=== PATIENT | male | born 1990 | race Asian ===

== ENCOUNTER 2019-05-12 15:17 | Inpatient (IN) | payer SELFPAY ==
[2019-05-12] MEDS ORDERED: ONDANSETRON 4 MG TAB.RAPDIS PO ONE (15:35)
--- NOTE | 2019-05-12 15:40 | ER Document Report ---
ED Medical Screen (RME) - General Chief Complaint: Abdominal Pain Stated Complaint: ABDOMINAL PAIN Time Seen by Provider: 05/12/19 15:37 Mode of Arrival: Wheelchair Information source: Patient - Interpreted [id number] Notes: 29-year-old male presented to ED for complaint of abdominal pain nausea and vomiting. He states that started about 4 hours ago. He has a history of pancreatitis. He states he used to drink alcohol a lot worse now he drinks alcohol seldom. He states he did have a bottle of alcohol last night. Patient states he does not smoke or use any drugs. He has no other medical history no surgical history. I have greeted and performed a rapid initial assessment of this patient. A comprehensive ED assessment and evaluation of the patient, analysis of test results and completion of medical decision making process will be conducted by an additional ED providers. - Related Data Allergies/Adverse Reactions: No Known Allergies Allergy (Unverified 05/12/19 15:34) Past Medical History - Social History Chew tobacco use (# tins/day): No Frequency of alcohol use: Occasional Drug Abuse: None Physical Exam - Vital signs Vitals: Pulse Resp BP Pulse Ox 77 18 140/78 H 96 05/12/19 15:22 05/12/19 15:22 05/12/19 15:22 05/12/19 15:22 Course - Vital Signs Vital signs: Temp Pulse Resp BP Pulse Ox 77 18 140/78 H 96 05/12/19 15:22 05/12/19 15:22 05/12/19 15:22 05/12/19 15:22
[2019-05-12 16:08] LABS: ABSOLUTE BASOPHILS # (AUTO) 0.1 10^3/uL (0.0-0.2); ABSOLUTE EOSINOPHILS # (AUTO) 0.1 10^3/uL (0.0-0.6); ABSOLUTE LYMPHOCYTES (AUTO) 1.8 10^3/uL (0.5-4.7); ABSOLUTE MONOCYTES (AUTO) 0.8 10^3/uL (0.1-1.4); ABSOLUTE NEUT (AUTO) 16.4 10^3/uL (1.7-8.2); APPEARANCE,URINE CLEAR; BASOPHILS % (AUTO) 0.4 % (0-2); BILIRUBIN,URINE NEGATIVE (NEGATIVE); COLOR,URINE YELLOW; EOSINOPHILS % (AUTO) 0.3 % (0-6); GLUCOSE, URINE NEGATIVE (NEGATIVE); HEMATOCRIT 47.8 % (37.9-51.0); KETONES,URINE 20 mg/dL (NEGATIVE); LYMPHOCYTES % (AUTO) 9.2 % (13-45); MEAN CORPUSCULAR VOLUME 82 fl (80-97); MONOCYTES % (AUTO) 4.4 % (3-13); PLATELET COUNT 332 10^3/uL (150-450); PROTEIN,URINE 30 mg/dL (NEGATIVE); RED BLOOD COUNT 5.81 10^6/uL (4.35-5.55); RED CELL DISTRIBUTION WIDTH 13.4 % (11.5-14.0); SEGMENTED NEUTROPHILS % (AUTO) 85.7 % (42-78); TOTAL CELLS COUNTED % (AUTO) 100 %; URINE SPECIFIC GRAVITY 1.028; UROBILINOGEN,URINE NEGATIVE mg/dL (<2.0); WHITE BLOOD COUNT 19.2 10^3/uL (4.0-10.5)
[2019-05-12 16:22] LABS: URINE AMPHETAMINES SCREEN NEGATIVE; URINE BARBITURATES SCREEN NEGATIVE; URINE BENZODIAZEPINES SCREEN NEGATIVE; URINE COCAINE SCREEN NEGATIVE; URINE MARIJUANA (THC) SCREEN NEGATIVE; URINE METHADONE SCREEN NEGATIVE; URINE PHENCYCLIDINE SCREEN NEGATIVE
[2019-05-12 16:34] LABS: MEAN CORPUSCULAR HGB CONC 33.5 g/dL (32.0-36.0)
--- NOTE | 2019-05-12 17:48 | ER Document Report ---
ED GI/ - General Chief Complaint: Abdominal Pain Stated Complaint: ABDOMINAL PAIN Time Seen by Provider: 05/12/19 15:37 Mode of Arrival: Wheelchair - HPI Notes: 05/12/19 29-year-old male to the emergency department with complaints of upper abdominal pain with nausea and vomiting that started this morning. He states that he has a history of pancreatitis and he drank one beer last night. States that since then he has had excruciating pain. He states that he used to be a heavy drinker but stopped after he got pancreatitis. He denies any fevers or chills. There has been some blood in his vomit. He denies any other drug use. He denies any diarrhea. - Related Data Allergies/Adverse Reactions: No Known Allergies Allergy (Unverified 05/12/19 15:34) Past Medical History - General Information source: Patient - Interpreted [id number] - Social History Smoking Status: Former Smoker Chew tobacco use (# tins/day): No Frequency of alcohol use: Occasional Drug Abuse: None Family History: Reviewed & Not Pertinent Patient has suicidal ideation: No Patient has homicidal ideation: No Review of Systems - Review of Systems Constitutional: denies: Chills, Fever EENT: No symptoms reported Cardiovascular: denies: Chest pain, Palpitations Respiratory: denies: Cough, Short of breath Gastrointestinal: Abdominal pain, Nausea, Vomiting. denies: Diarrhea Genitourinary: No symptoms reported Male Genitourinary: No symptoms reported Musculoskeletal: No symptoms reported Skin: No symptoms reported Hematologic/Lymphatic: No symptoms reported Neurological/Psychological: No symptoms reported -: Yes All other systems reviewed and negative Physical Exam - Vital signs Vitals: Pulse Resp BP Pulse Ox 77 18 140/78 H 96 05/12/19 15:22 05/12/19 15:22 05/12/19 15:22 05/12/19 15:22 Interpretation: Normal - General General appearance: Alert In distress: Moderate Notes: Patient writhing in bed holding upper abdomen. He occasionally will dry heave. He appears very uncomfortable. - HEENT Head: Normocephalic, Atraumatic Eyes: Normal Pupils: PERRL - Respiratory Respiratory status: No respiratory distress Chest status: Nontender Breath sounds: Normal Chest palpation: Normal - Cardiovascular Rhythm: Regular Heart sounds: Normal auscultation Murmur: No - Abdominal Inspection: Obese Distension: No distension Bowel sounds: Normal Tenderness: Tender - Positive tenderness to palpation over the epigastrium with mild guarding. No rebound. Negative McBurney's point. Negative Coleman sign. No CVA tenderness. Organomegaly: No organomegaly - Back Back: Normal, Nontender - Neurological Neuro grossly intact: Yes Cognition: Normal Orientation: AAOx4 Liseth Coma Scale Eye Opening: Spontaneous [place] Coma Scale Verbal: Oriented Liseth Coma Scale Motor: Obeys Commands Liseth Coma Scale Total: 15 Speech: Normal Cranial nerves: Normal. No: Facial palsy Cerebellar coordination: Normal Motor strength normal: LUE, RUE, LLE, RLE Additional motor exam normals: Equal buckle and button maker Sensory: Normal - Psychological Associated symptoms: Normal affect, Normal mood - Skin Skin Temperature: Warm Skin Moisture: Dry Skin Color: Normal Course - Re-evaluation Re-evalutation: 05/12/19 Noted lip[address] level. Pending CT. Patient will need admission. Noted CTU with no necrotizing pancreatitis or drainable abscess. Discussed with Dr. Russlel and he agrees with plan for admission for acute pancreatitis. Spoke with Dr. Marcelo, hospitalist. He agrees with plan for admission and he would like for the patient to go to the medical floor. He is aware of medicines given to the patient as well as CT reading plus lipase level platelet count. Updated patient and family about the plan for admission and they agree. Impression: Acute alcohol induced pancreatitis. Patient is resting much better now but still has mild pain. He has an uncomplicated acute pancreatitis. WIll admit to the hospitalist service. - Vital Signs Vital signs: Temp Pulse Resp BP Pulse Ox 97.8 F 77 15 121/68 96 05/12/19 23:35 05/12/19 15:22 05/12/19 23:01 05/12/19 23:01 05/12/19 23:01 - Laboratory Result Diagrams: 05/12/19 15:50 05/12/19 20:40 Laboratory results interpreted by me: 05/12/19 05/12/19 05/12/19 15:50 15:50 20:40 WBC 19.2 H RBC 5.81 H Lymph % (Auto) 9.2 L Absolute Neuts (auto) 16.4 H Seg Neutrophils % 85.7 H Sodium 136.2 L Glucose 126 H Lipase 7579.8 H Urine Protein 30 H Urine Ketones 20 H Urine Blood SMALL H - Diagnostic Test Radiology reviewed: Image reviewed, Reports reviewed Discharge - Discharge Clinical Impression: Acute pancreatitis Qualifiers: Pancreatitis type: alcohol induced Acute pancreatitis complication: no infection or necrosis Qualified Code(s): K85.20 - Alcohol induced acute pancreatitis without necrosis or infection Condition: Stable Disposition: ADMITTED INPATIENT Admitting Provider: Davian (Hospitalist) Unit Admitted: Medical Floor
[2019-05-12] MEDS ORDERED: MORPHINE SULFATE 10 MG/ML INJ IV ONE (17:53)
[2019-05-12] MEDS ORDERED: PROMETHAZINE HCL INJ 25 MG/1 ML VIAL IM ONE (17:56)
[2019-05-12] MEDS ORDERED: PROMETHAZINE HCL INJ 50 MG/1 ML VIAL IM PRN (17:59)
[2019-05-12] MEDS: NORMAL SALINE 1000 ML 1,000 ML IV PRN ×2 (18:04→19:19)
[2019-05-12] MEDS ORDERED: HYDROMORPHONE HCL INJ/PF 2 MG/ML AMPULE IV ONE ×2 (18:56→21:22)
[2019-05-12] MEDS ORDERED: PROMETHAZINE HCL INJ 25 MG/1 ML VIAL ONE (19:11)
[2019-05-12] MEDS ORDERED: PROMETHAZINE HCL INJ 25 MG/1 ML VIAL IV ONE (19:14)
[2019-05-12 21:23] LABS: ALBUMIN 4.3 g/dL (3.5-5.0); ALKALINE PHOSPHATASE 67 U/L (38-126); ANION GAP 10 (5-19); ASPARTATE AMINO TRANSFERASE 43 U/L (17-59); BILIRUBIN,DIRECT 0.2 mg/dL (0.0-0.4); BILIRUBIN,TOTAL 0.5 mg/dL (0.2-1.3); BLOOD UREA NITROGEN 14 mg/dL (7-20); CALCIUM 8.4 mg/dL (8.4-10.2); CARBON DIOXIDE 22 mmol/L (22-30); CHLORIDE 104 mmol/L (98-107); GLUCOSE 126 mg/dL (75-110); POTASSIUM 4.2 mmol/L (3.6-5.0); TOTAL PROTEIN 7.2 g/dL (6.3-8.2)
--- NOTE | 2019-05-12 23:02 | RADIOLOGY REPORT (SQ) ---
EXAM DESCRIPTION: CT ABDOMEN PELVIS WITH IV CONTRAST COMPLETED DATE/TME: 05/12/2019 18:25 CLINICAL HISTORY: 29 years, Male, epigastric abd pain. hx of pancreatitis COMPARISON: None. TECHNIQUE: Contrast enhanced CT of the abdomen/pelvis was performed. Coronal and sagittal reformations were created. Images were obtained after the uneventful administration of 100 mL of Omnipaque 350 intravenous contrast. Images stored on PACS. All CT scanners at this facility use dose modulation, iterative reconstruction, and/or weight based dosing when appropriate to reduce radiation dose to as low as reasonably achievable (ALARA). [facility]: Dose Right [facility]: CareDose [facility]: Dose Right [facility]: Teradose 4D [facility]: Snaptracs LIMITATIONS: None. FINDINGS: Limited evaluation of the lower chest reveals clear lung bases. The liver is diffusely low in attenuation relative to the spleen. No focal liver lesions are appreciated. The spleen, both adrenal glands, and gallbladder appear normal. The pancreas appears diffusely edematous, demonstrating peripancreatic inflammatory stranding. No drainable fluid collections are identified. The splenic vein enhances normally. A subcentimeter low-density lesion is noted about the upper pole of the left kidney, too small to accurately characterize. No hydronephrosis or hydroureter. Urinary bladder shows no suspicious finding. A small amount of excreted contrast material is noted within both ureters. Small and large bowel are normal in caliber. No evidence of bowel obstruction. Appendix is normal. Vascular structures opacify with contrast normally. No suspicious lymphadenopathy or drainable fluid collections are appreciated. Bone windows show no destructive osseous lesions. IMPRESSION: Findings consistent with acute, uncomplicated pancreatitis. Hepatic steatosis. TECHNICAL DOCUMENTATION: Quality ID # 436: Final reports with documentation of one or more dose reduction techniques (e.g., Automated exposure control, adjustment of the mA and/or kV according to patient size, use of iterative reconstruction technique) copyright 2010 [employer]- All Rights Reserved
[2019-05-12] MEDS ORDERED: NORMAL SALINE 1000 ML 1,000 ML IV PRN (23:24)
[2019-05-12] MEDS ORDERED: IPRATROPIUM/ALBUTEROL 0.5-2.5 MG/3 ML AMPUL NEB PRN (23:36)
[2019-05-12] MEDS ORDERED: PROMETHAZINE HCL 25 MG SUPP.RECT PR PRN (23:36)
[2019-05-13 05:21] LABS: ABSOLUTE LYMPHOCYTES (AUTO) 0.8 10^3/uL (0.5-4.7); ABSOLUTE MONOCYTES (AUTO) 1.1 10^3/uL (0.1-1.4); ABSOLUTE NEUT (AUTO) 14.4 10^3/uL (1.7-8.2); BASOPHILS % (AUTO) 0.2 % (0-2); HEMATOCRIT 44.7 % (37.9-51.0); HEMOGLOBIN 15.1 g/dL (13.5-17.0); LYMPHOCYTES % (AUTO) 5.1 % (13-45); MEAN CORPUSCULAR HEMOGLOBIN 27.4 pg (27.0-33.4); MEAN CORPUSCULAR HGB CONC 33.7 g/dL (32.0-36.0); MEAN CORPUSCULAR VOLUME 81 fl (80-97); MONOCYTES % (AUTO) 6.6 % (3-13); PLATELET COUNT 245 10^3/uL (150-450); RED BLOOD COUNT 5.49 10^6/uL (4.35-5.55); RED CELL DISTRIBUTION WIDTH 13.3 % (11.5-14.0); SEGMENTED NEUTROPHILS % (AUTO) 88.1 % (42-78); TOTAL CELLS COUNTED % (AUTO) 100 %; WHITE BLOOD COUNT 16.4 10^3/uL (4.0-10.5)
[2019-05-13 05:34] LABS: ALBUMIN 4.2 g/dL (3.5-5.0); ALKALINE PHOSPHATASE 50 U/L (38-126); ANION GAP 12 (5-19); ASPARTATE AMINO TRANSFERASE 42 U/L (17-59); BILIRUBIN,DIRECT 0.3 mg/dL (0.0-0.4); BILIRUBIN,TOTAL 0.8 mg/dL (0.2-1.3); BLOOD UREA NITROGEN 14 mg/dL (7-20); CALCIUM 8.6 mg/dL (8.4-10.2); CARBON DIOXIDE 24 mmol/L (22-30); CHLORIDE 103 mmol/L (98-107); CHOLESTEROL 196.01 mg/dL (0-200); GLUCOSE 133 mg/dL (75-110); POTASSIUM 3.9 mmol/L (3.6-5.0); TOTAL PROTEIN 7.1 g/dL (6.3-8.2); TRIGLYCERIDES 395 mg/dL (<150)
[2019-05-13 05:45] LABS: DIRECT LDL 64 mg/dL (<100)
--- NOTE | 2019-05-13 06:34 | PDOC H&P ---
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 intake. In the emergency room is found to sam ve leukocytosis unremarkable LFTs, lipase of [address] without necrosis. He started on symptomatic management and referred to the hospitalist for admission. Patient admits several previous episode secondary to over consumption and alcohol. He does admit to one alcoholic beverage 4 days ago Past Medical History Cardiac Medical History: Reports: None Social History Information Source: Patient Smoking Status: Unknown if Ever Smoked Electronic Cigarette use?: No Frequency of Alcohol Use: Occasional Hx Recreational Drug Use: No Drugs: None Hx Prescription Drug Abuse: No - Advance Directive Resuscitation Status: Full Code Family History Family History: COPD Parental Family History Reviewed: Yes Children Family History Reviewed: Yes Sibling(s) Family History Reviewed.: Yes Medication/Allergy Home Medications: No Home Medications 05/12/19 Allergies/Adverse Reactions: No Known Allergies Allergy (Unverified 05/12/19 15:34) Review of Systems Constitutional: ABSENT: chills, fever(s), headache(s), weight gain, weight loss Eyes: ABSENT: visual disturbances Ears: ABSENT: hearing changes Cardiovascular: ABSENT: chest pain, dyspnea on exertion, edema, orthropnea, palpitations Respiratory: ABSENT: cough, hemoptysis Gastrointestinal: ABSENT: abdominal pain, constipation, diarrhea, hematemesis, hematochezia, nausea, vomiting Genitourinary: ABSENT: dysuria, hematuria Musculoskeletal: ABSENT: joint swelling Integumentary: ABSENT: rash, wounds Neurological: ABSENT: abnormal gait, abnormal speech, confusion, dizziness, focal weakness, syncope Psychiatric: ABSENT: anxiety, depression, homidical ideation, suicidal ideation Endocrine: ABSENT: cold intolerance, heat intolerance, polydipsia, polyuria Hematologic/Lymphatic: ABSENT: easy bleeding, easy bruising Physical Exam Vital Signs: Temp Pulse Resp BP Pulse Ox 98.2 F 103 H 12 137/76 H 98 05/13/19 03:36 05/13/19 03:36 05/13/19 01:31 05/13/19 03:36 05/13/19 03:36 Intake & Output 11/01/2005/12/19 05/13/19 11:59 11:59 11:59 Intake Total 4000 Output Total 650 Balance 3350 Weight 80.2 kg General appearance: PRESENT: cooperative, mild distress, obese, well-developed, well-nourished Head exam: PRESENT: atraumatic, normocephalic Eye exam: PRESENT: conjunctiva pink, EOMI, PERRLA. ABSENT: scleral icterus Ear exam: PRESENT: normal external ear exam Mouth exam: PRESENT: moist, tongue midline Neck exam: ABSENT: carotid bruit, JVD, lymphadenopathy, thyromegaly Respiratory exam: PRESENT: clear to auscultation tashia. ABSENT: rales, rhonchi, wheezes Cardiovascular exam: PRESENT: RRR. ABSENT: diastolic murmur, rubs, systolic murmur Pulses: PRESENT: normal dorsalis pedis pul Vascular exam: PRESENT: normal capillary refill GI/Abdominal exam: PRESENT: distended, soft, tenderness. ABSENT: diminished bowel sounds, firm, guarding Rectal exam: PRESENT: deferred Extremities exam: PRESENT: full ROM. ABSENT: calf tenderness, clubbing, pedal edema Neurological exam: PRESENT: alert, awake, oriented to person, oriented to place, oriented to time, oriented to situation, CN II-XII grossly intact. ABSENT: motor sensory deficit Psychiatric exam: PRESENT: appropriate affect, normal mood. ABSENT: homicidal ideation, suicidal ideation Skin exam: PRESENT: dry, intact, warm. ABSENT: cyanosis, rash Results Laboratory Results: 05/13/19 04:37 05/13/19 04:37 05/12/19 05/12/19 05/12/19 15:50 15:50 15:50 WBC 19.2 H RBC 5.81 H Hgb 16.0 Hct 47.8 MCV 82 MCH 28.0 MCHC 33.5 RDW 13.4 Plt Count 332 Seg Neutrophils % 85.7 H Sodium Cancelled Potassium Cancelled Chloride Cancelled Carbon Dioxide Cancelled Anion Gap Cancelled BUN Cancelled Creatinine Cancelled Est GFR ( Amer) Cancelled Est GFR (Non-Af Amer) Cancelled Glucose Cancelled Calcium Cancelled Total Bilirubin Cancelled AST Cancelled Alkaline Phosphatase Cancelled Total Protein Cancelled Albumin Cancelled Triglycerides Cholesterol LDL Cholesterol Direct VLDL Cholesterol HDL Cholesterol Lipase Cancelled Urine Color YELLOW Urine Appearance CLEAR Urine pH 6.0 Ur Specific [place] 1.028 Urine Protein 30 H Urine Glucose (UA) NEGATIVE Urine Ketones 20 H Urine Blood SMALL H Urine RBC (Auto) 9 05/12/19 05/12/19 05/12/19 16:57 19:36 20:40 WBC RBC Hgb Hct MCV MCH MCHC RDW Plt Count Seg Neutrophils % Sodium Cancelled Cancelled 136.2 L Potassium Cancelled Cancelled 4.2 Chloride Cancelled Cancelled 104 Carbon Dioxide Cancelled Cancelled 22 Anion Gap Cancelled Cancelled 10 BUN Cancelled Cancelled 14 Creatinine Cancelled Cancelled 0.58 Est GFR ( Amer) Cancelled Cancelled > 60 Est GFR (Non-Af Amer) Cancelled Cancelled Glucose Cancelled Cancelled 126 H Calcium Cancelled Cancelled 8.4 Total Bilirubin Cancelled Cancelled 0.5 AST Cancelled Cancelled 43 Alkaline Phosphatase Cancelled Cancelled 67 Total Protein Cancelled Cancelled 7.2 Albumin Cancelled Cancelled 4.3 Triglycerides Cholesterol LDL Cholesterol Direct VLDL Cholesterol HDL Cholesterol Lipase Cancelled Cancelled 7579.8 H Urine Color Urine Appearance Urine pH Ur Specific [place] Urine Protein Urine Glucose (UA) Urine Ketones Urine Blood Urine RBC (Auto) 05/13/19 05/13/19 04:37 04:37 WBC 16.4 H RBC 5.49 Hgb 15.1 Hct 44.7 MCV 81 MCH 27.4 MCHC 33.7 RDW 13.3 Plt Count 245 Seg Neutrophils % 88.1 H Sodium 138.9 Potassium 3.9 Chloride 103 Carbon Dioxide 24 Anion Gap 12 BUN 14 Creatinine 0.69 Est GFR ( Amer) > 60 Est GFR (Non-Af Amer) Glucose 133 H Calcium 8.6 Total Bilirubin 0.8 AST 42 Alkaline Phosphatase 50 Total Protein 7.1 Albumin 4.2 Triglycerides 395 H Cholesterol 196.01 LDL Cholesterol Direct 64 VLDL Cholesterol 79.0 H HDL Cholesterol 43 Lipase Urine Color Urine Appearance Urine pH Ur Specific [place] Urine Protein Urine Glucose (UA) Urine Ketones Urine Blood Urine RBC (Auto) Impressions: Abdomen/Pelvis CT 05/12/19 18:25 IMPRESSION: Findings consistent with acute, uncomplicated pancreatitis. Hepatic steatosis. TECHNICAL DOCUMENTATION: Quality ID # 436: Final reports with documentation of one or more dose reduction techniques (e.g., Automated exposure control, adjustment of the mA and/or kV according to patient size, use of iterative reconstruction technique) copyright 2011 [employer]- All Rights Reserved Assessment and Plan - Diagnosis (1) Acute pancreatitis Qualifiers: Pancreatitis type: alcohol induced Acute pancreatitis complication: no infection or necrosis Qualified Code(s): K85.20 - Alcohol induced acute pancreatitis without necrosis or infection Is this a current diagnosis for this admission?: Yes Plan: Bowel rest, hydration, symptomatic management, follow-up chemistry. Trial p.o. clear liquid diet with no longer requesting narcotic analgesia. Advance diet as tolerated. (2) Abdominal pain Is this a current diagnosis for this admission?: Yes Plan: Secondary to #1 - Time Time Spent with patient: 15-24 minutes - Inpatient Certification Medical Necessity: Need Close Monitoring Due to Risk of Patient Decompensation
[2019-05-13] MEDS: KETOROLAC TROMETHAMINE INJ/PF 30 MG/1 ML SDV IV PRN ×3 (07:09→20:32)
[2019-05-13] MEDS: HEPARIN SOD (PORCINE) 5,000 UNIT/ML 1 ML VIAL SUBCUT SCH ×3 (07:10→22:53)
[2019-05-13] MEDS: NORMAL SALINE 1000 ML 1,000 ML IV PRN ×2 (07:13→20:34)
[2019-05-13] MEDS: ACETAMINOPHEN 325 MG TABLET PO PRN (17:15)
[2019-05-14] MEDS: HEPARIN SOD (PORCINE) 5,000 UNIT/ML 1 ML VIAL SUBCUT SCH ×3 (05:53→21:36)
[2019-05-14] MEDS: NORMAL SALINE 1000 ML 1,000 ML IV PRN ×2 (06:47→10:43)
[2019-05-14] MEDS: KETOROLAC TROMETHAMINE INJ/PF 30 MG/1 ML SDV IV PRN ×3 (06:55→20:44)
--- NOTE | 2019-05-14 14:44 | PDOC PROGRESS REPORT ---
Subjective Progress Note for:: 05/14/19 Subjective:: This is a 29-year-old male who was admitted for alcohol induced acute pancreatitis. Patient was n.p.o. yesterday and attempt to advance to liquid diet was done yesterday afternoon. However he developed recurrence of abdominal pain hence was made n.p.o. again. Upon encounter this morning, he says that his abdominal pain has slightly improved. We will try to advance again to a full liquid diet today. Reason For Visit: ACUTE PANCREATITIS Physical Exam Vital Signs: Temp Pulse Resp BP Pulse Ox 97.6 F 92 18 110/62 100 05/13/19 22:00 05/13/19 22:00 05/13/19 22:00 05/13/19 22:00 05/13/19 22:00 Intake & Output 05/13/19 05/14/19 05/15/19 06:59 06:59 06:59 Intake Total 4000 3000 Output Total 650 Balance 3350 3000 Weight 176 lb 12.972 oz 177 lb 4.026 oz General appearance: PRESENT: no acute distress, well-developed, well-nourished Head exam: PRESENT: atraumatic, normocephalic Eye exam: PRESENT: conjunctiva pink, EOMI, PERRLA. ABSENT: scleral icterus Ear exam: PRESENT: normal external ear exam Mouth exam: PRESENT: moist, tongue midline Neck exam: ABSENT: carotid bruit, JVD, lymphadenopathy, thyromegaly Respiratory exam: PRESENT: clear to auscultation tashia. ABSENT: rales, rhonchi, wheezes Cardiovascular exam: PRESENT: RRR. ABSENT: diastolic murmur, rubs, systolic murmur Pulses: PRESENT: normal dorsalis pedis pul GI/Abdominal exam: PRESENT: normal bowel sounds, soft, tenderness - minimal direct epig tenderness. ABSENT: distended, guarding, mass, organolmegaly, rebound Rectal exam: PRESENT: deferred Neurological exam: PRESENT: alert, awake, oriented to person, oriented to place, oriented to time, oriented to situation, CN II-XII grossly intact. ABSENT: motor sensory deficit Results Laboratory Results: 05/13/19 04:37 05/13/19 04:37 Impressions: Abdomen/Pelvis CT 05/12/19 18:25 IMPRESSION: Findings consistent with acute, uncomplicated pancreatitis. Hepatic steatosis. TECHNICAL DOCUMENTATION: Quality ID # 436: Final reports with documentation of one or more dose reduction techniques (e.g., Automated exposure control, adjustment of the mA and/or kV according to patient size, use of iterative reconstruction technique) copyright 2011 [employer]- All Rights Reserved Assessment and Plan - Diagnosis (1) Acute pancreatitis Qualifiers: Pancreatitis type: alcohol induced Acute pancreatitis complication: no infection or necrosis Qualified Code(s): K85.20 - Alcohol induced acute pancreatitis without necrosis or infection Is this a current diagnosis for this admission?: Yes Plan: Advance to liquid diet today. Reduce IV fluids to 100 cc/hr.
[2019-05-15] MEDS: HEPARIN SOD (PORCINE) 5,000 UNIT/ML 1 ML VIAL SUBCUT SCH ×3 (05:13→21:04)
[2019-05-15] MEDS: ACETAMINOPHEN 325 MG TABLET PO PRN ×3 (06:01→21:08)
[2019-05-15] MEDS: KETOROLAC TROMETHAMINE INJ/PF 30 MG/1 ML SDV IV PRN ×2 (08:29→21:03)
--- NOTE | 2019-05-15 13:58 | PDOC PROGRESS REPORT ---
Subjective Progress Note for:: 05/15/19 Subjective:: This is a 29-year-old male who was admitted for alcohol induced acute pancreatitis. 05/14: Patient was n.p.o. yesterday and attempt to advance to liquid diet was done yesterday afternoon. However he developed recurrence of abdominal pain hence was made n.p.o. again. Upon encounter this morning, he says that his abdominal pain has slightly improved. We will try to advance again to a full liquid diet today. 05/15: He complained of recurrence of abdominal pain when he tried to increase his oral intake today. Overall he says that his abdominal pain is slightly better compared to yesterday. We will keep him on full liquids today and continue to advance as tolerated. Reason For Visit: ACUTE PANCREATITIS Physical Exam Vital Signs: Temp Pulse Resp BP Pulse Ox 98.9 F 97 15 115/60 96 05/15/19 00:00 05/15/19 09:48 05/15/19 09:48 05/15/19 00:00 05/15/19 09:48 Intake & Output 05/14/19 05/15/19 05/16/19 06:59 06:59 06:59 Intake Total 3000 729 Balance 3000 729 Weight 177 lb 4.026 oz 178 lb 9.191 oz General appearance: PRESENT: no acute distress, well-developed, well-nourished Head exam: PRESENT: atraumatic, normocephalic Eye exam: PRESENT: conjunctiva pink, EOMI, PERRLA. ABSENT: scleral icterus Ear exam: PRESENT: normal external ear exam Mouth exam: PRESENT: moist, tongue midline Neck exam: ABSENT: carotid bruit, JVD, lymphadenopathy, thyromegaly Respiratory exam: PRESENT: clear to auscultation tashia. ABSENT: rales, rhonchi, wheezes Cardiovascular exam: PRESENT: RRR. ABSENT: diastolic murmur, rubs, systolic mur mur Pulses: PRESENT: normal dorsalis pedis pul GI/Abdominal exam: PRESENT: normal bowel sounds, soft, tenderness - improved direct tenderness. ABSENT: distended, guarding, mass, organolmegaly, rebound Rectal exam: PRESENT: deferred Extremities exam: PRESENT: full ROM. ABSENT: calf tenderness, clubbing, pedal edema Neurological exam: PRESENT: alert, awake, oriented to person, oriented to place, oriented to time, oriented to situation, CN II-XII grossly intact. ABSENT: motor sensory deficit Results Laboratory Results: 05/13/19 04:37 05/13/19 04:37 Impressions: Abdomen/Pelvis CT 05/12/19 18:25 IMPRESSION: Findings consistent with acute, uncomplicated pancreatitis. Hepatic steatosis. TECHNICAL DOCUMENTATION: Quality ID # 436: Final reports with documentation of one or more dose reduction techniques (e.g., Automated exposure control, adjustment of the mA and/or kV according to patient size, use of iterative reconstruction technique) copyright 2011 [employer]- All Rights Reserved Assessment and Plan - Diagnosis (1) Acute pancreatitis Qualifiers: Pancreatitis type: alcohol induced Acute pancreatitis complication: no infection or necrosis Qualified Code(s): K85.20 - Alcohol induced acute pancreatitis without necrosis or infection Is this a current diagnosis for this admission?: Yes Plan: 05/14: Advance to liquid diet today. Reduce IV fluids to 100 cc/hr. 05/15: He complained of recurrence of abdominal pain when he tried to increase his oral intake today. Overall he says that his abdominal pain is slightly better compared to yesterday. We will keep him on full liquids today and continue to advance as tolerated.
[2019-05-15] MEDS: NORMAL SALINE 1000 ML 1,000 ML IV PRN (16:58)
[2019-05-16] MEDS: HEPARIN SOD (PORCINE) 5,000 UNIT/ML 1 ML VIAL SUBCUT SCH ×2 (05:38→14:48)
[2019-05-16] MEDS: NORMAL SALINE 1000 ML 1,000 ML IV PRN (05:38)
[2019-05-16] MEDS: ACETAMINOPHEN 325 MG TABLET PO PRN (05:53)
[2019-05-16] MEDS: KETOROLAC TROMETHAMINE INJ/PF 30 MG/1 ML SDV IV PRN ×2 (05:53→15:23)
[2019-05-16] MEDS ORDERED: NORMAL SALINE 1000 ML 1,000 ML IV PRN (06:00)
[2019-05-16 07:01] LABS: HEMATOCRIT 35.9 % (37.9-51.0); HEMOGLOBIN 12.3 g/dL (13.5-17.0); MEAN CORPUSCULAR HEMOGLOBIN 27.6 pg (27.0-33.4); MEAN CORPUSCULAR HGB CONC 34.3 g/dL (32.0-36.0); MEAN CORPUSCULAR VOLUME 80 fl (80-97); PLATELET COUNT 246 10^3/uL (150-450); RED BLOOD COUNT 4.46 10^6/uL (4.35-5.55); RED CELL DISTRIBUTION WIDTH 13.1 % (11.5-14.0); WHITE BLOOD COUNT 12.7 10^3/uL (4.0-10.5)
[2019-05-16 07:19] LABS: ALBUMIN 3.4 g/dL (3.5-5.0); ALKALINE PHOSPHATASE 72 U/L (38-126); ANION GAP 12 (5-19); ASPARTATE AMINO TRANSFERASE 38 U/L (17-59); BILIRUBIN,DIRECT 0.6 mg/dL (0.0-0.4); BILIRUBIN,TOTAL 1.3 mg/dL (0.2-1.3); BLOOD UREA NITROGEN 11 mg/dL (7-20); CALCIUM 8.5 mg/dL (8.4-10.2); CARBON DIOXIDE 20 mmol/L (22-30); CHLORIDE 106 mmol/L (98-107); GLUCOSE 90 mg/dL (75-110); POTASSIUM 3.1 mmol/L (3.6-5.0); TOTAL PROTEIN 6.2 g/dL (6.3-8.2)
[2019-05-16] MEDS ORDERED: POTASSIUM CHLORIDE 10 MEQ CAPSULE.ER PO ONE (09:00)
[2019-05-16 13:12] VITALS: BP 115/60
[2019-05-16 14:52] LABS: POTASSIUM 3.6 mmol/L (3.6-5.0)
--- NOTE | 2019-05-17 15:40 | PDOC DISCHARGE SUMMARY ---
Impression - Admit/DC Date/PCP Admission Date/Primary Care Provider: 05/13/19 00:00 Discharge Date: 05/16/19 - Discharge Diagnosis (1) Acute pancreatitis Is this a current diagnosis for this admission?: Yes (2) Abdominal pain Is this a current diagnosis for this admission?: Yes (3) Obesity Is this a current diagnosis for this admission?: Yes - Additional Information Resuscitation Status: Full Code Discharge Diet: As Tolerated, Regular Discharge Activity: Activity As Tolerated Referrals: [facility] [Outside] - 05/23/19 10:30 am (Please bring all disccharge paperwork, medications, and ID to the appointment. 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 intake. In the emergency room is found to have leukocytosis unremarkable LFTs, lipase of [address] without necrosis. He started on symptomatic management and referred to the hospitalist for admission. Patient admits several previous episode secondary to over consumption and alcohol. He does admit to one alcoholic beverage 4 days ago Hospital Course Hospital Course: (1) Acute pancreatitis Resolved. Acute alcoholic hepatitis. Patient was admitted to medical floor with bowel rest, hydration, symptomatic management. Diet was advanced as tolerated. Asymptomatic on day of discharge. Having normal bowel bladder movement. Advised on EtOH options. Was also noted to have mildly elevated triglyceride. Was discharged on omega-3 fatty acid 2 g daily. Was asked to follow-up with PCP for evaluation of lipid panel. (2) Abdominal pain Secondary to #1 (3) Obesity BMI 28.6. Diet and lifestyle modification recommended. Physical Exam Vital Signs: Temp Pulse Resp BP Pulse Ox 97.7 F 83 20 115/60 98 05/16/19 13:08 05/16/19 13:08 05/16/19 13:08 05/16/19 13:08 05/16/19 13:08 Intake & Output 05/16/19 05/17/19 05/18/19 06:59 06:59 06:59 Intake Total 2307 668 Balance 2307 668 Weight 80.3 kg General appearance: PRESENT: no acute distress, obese, well-developed, well- nourished Head exam: PRESENT: atraumatic, normocephalic Eye exam: PRESENT: conjunctiva pink, EOMI, PERRLA. ABSENT: scleral icterus Ear exam: PRESENT: normal external ear exam Mouth exam: PRESENT: moist, tongue midline Neck exam: ABSENT: carotid bruit, JVD, lymphadenopathy, thyromegaly Respiratory exam: PRESENT: clear to auscultation tashia. ABSENT: rales, rhonchi, wheezes Cardiovascular exam: PRESENT: RRR. ABSENT: diastolic murmur, rubs, systolic murmur Pulses: PRESENT: normal dorsalis pedis pul Vascular exam: PRESENT: normal capillary refill GI/Abdominal exam: PRESENT: normal bowel sounds, soft. ABSENT: distended, guarding, mass, organolmegaly, rebound, tenderness Rectal exam: PRESENT: deferred Extremities exam: PRESENT: full ROM. ABSENT: calf tenderness, clubbing, pedal edema Neurological exam: PRESENT: alert, awake, oriented to person, oriented to place, oriented to time, oriented to situation, CN II-XII grossly intact. ABSENT: motor sensory deficit Psychiatric exam: PRESENT: appropriate affect, normal mood. ABSENT: homicidal ideation, suicidal ideation Skin exam: PRESENT: dry, intact, warm. ABSENT: cyanosis, rash Results Laboratory Results: WBC 12.7 10^3/uL (4.0-10.5) H 05/16/19 06:43 RBC 4.46 10^6/uL (4.35-5.55) 05/16/19 06:43 Hgb 12.3 g/dL (13.5-17.0) L 05/16/19 06:43 Hct 35.9 % (37.9-51.0) L 05/16/19 06:43 MCV 80 fl (80-97) 05/16/19 06:43 MCH 27.6 pg (27.0-33.4) 05/16/19 06:43 MCHC 34.3 g/dL (32.0-36.0) 05/16/19 06:43 RDW 13.1 % (11.5-14.0) 05/16/19 06:43 Plt Count 246 10^3/uL (150-450) 05/16/19 06:43 Lymph % (Auto) 5.1 % (13-45) L 05/13/19 04:37 Harris % (Auto) 6.6 % (3-13) 05/13/19 04:37 Eos % (Auto) 0.0 % (0-6) 05/13/19 04:37 Baso % (Auto) 0.2 % (0-2) 05/13/19 04:37 Absolute Neuts (auto) 14.4 10^3/uL (1.7-8.2) H 05/13/19 04:37 Absolute Lymphs (auto) 0.8 10^3/uL (0.5-4.7) 05/13/19 04:37 Absolute Monos (auto) 1.1 10^3/uL (0.1-1.4) 05/13/19 04:37 Absolute Eos (auto) 0.0 10^3/uL (0.0-0.6) 05/13/19 04:37 Absolute Basos (auto) 0.0 10^3/uL (0.0-0.2) 05/13/19 04:37 Seg Neutrophils % 88.1 % (42-78) H 05/13/19 04:37 Sodium 137.9 mmol/L (137-145) 05/16/19 06:43 Potassium 3.6 mmol/L (3.6-5.0) 05/16/19 14:25 Chloride 106 mmol/L (98-107) 05/16/19 06:43 Carbon Dioxide 20 mmol/L (22-30) L 05/16/19 06:43 Anion Gap 12 (5-19) 05/16/19 06:43 BUN 11 mg/dL (7-20) 05/16/19 06:43 Creatinine 0.66 mg/dL (0.52-1.25) 05/16/19 06:43 Est GFR ( Amer) > 60 (>60) 05/16/19 06:43 Est GFR (Non-Af Amer) Cancelled 05/12/19 19:36 Est GFR (MDRD) Non-Af > 60 (>60) 05/16/19 06:43 Glucose 90 mg/dL (75-110) 05/16/19 06:43 Calcium 8.5 mg/dL (8.4-10.2) 05/16/19 06:43 Magnesium 2.4 mg/dL (1.6-2.3) H 05/16/19 14:25 Total Bilirubin 1.3 mg/dL (0.2-1.3) 05/16/19 06:43 Direct Bilirubin 0.6 mg/dL (0.0-0.4) H 05/16/19 06:43 Neonat Total Bilirubin Not Reportable 05/16/19 06:43 Neonat Direct Bilirubin Not Reportable 05/16/19 06:43 Neonat Indirect Bili Not Reportable 05/16/19 06:43 AST 38 U/L (17-59) 05/16/19 06:43 ALT 48 U/L (<50) 05/16/19 06:43 Alkaline Phosphatase 72 U/L (38-126) 05/16/19 06:43 Total Protein 6.2 g/dL (6.3-8.2) L 05/16/19 06:43 Albumin 3.4 g/dL (3.5-5.0) L 05/16/19 06:43 Triglycerides 395 mg/dL (<150) H 05/13/19 04:37 Cholesterol 196.01 mg/dL (0-200) 05/13/19 04:37 LDL Cholesterol Direct 64 mg/dL (<100) 05/13/19 04:37 VLDL Cholesterol 79.0 mg/dL (10-31) H 05/13/19 04:37 HDL Cholesterol 43 mg/dL (>40) 05/13/19 04:37 Lipase 605.8 U/L (23-300) H 05/14/19 09:47 EGFR Cancelled 05/12/19 19:36 Urine Color YELLOW 05/12/19 15:50 Urine Appearance CLEAR 05/12/19 15:50 Urine pH 6.0 (5.0-9.0) 05/12/19 15:50 Ur Specific [place] 1.028 05/12/19 15:50 Urine Protein 30 mg/dL (NEGATIVE) H 05/12/19 15:50 Urine Glucose (UA) NEGATIVE mg/dL (NEGATIVE) 05/12/19 15:50 Urine Ketones 20 mg/dL (NEGATIVE) H 05/12/19 15:50 Urine Blood SMALL (NEGATIVE) H 05/12/19 15:50 Urine Nitrite (Reflex) NEGATIVE (NEGATIVE) 05/12/19 15:50 Urine Bilirubin NEGATIVE (NEGATIVE) 05/12/19 15:50 Urine Urobilinogen NEGATIVE mg/dL (<2.0) 05/12/19 15:50 Leukocyte Esterase Rfl NEGATIVE (NEGATIVE) 05/12/19 15:50 Urine RBC (Auto) 9 /HPF 05/12/19 15:50 Urine WBC (Reflex) < 1 /HPF 05/12/19 15:50 Urine Mucus (Auto) MANY /LPF 05/12/19 15:50 Urine Ascorbic Acid NEGATIVE (NEGATIVE) 05/12/19 15:50 Urine Opiates Screen NEGATIVE 05/12/19 15:50 Urine Methadone Screen NEGATIVE 05/12/19 15:50 Ur Barbiturates Screen NEGATIVE 05/12/19 15:50 Ur Phencyclidine Scrn NEGATIVE 05/12/19 15:50 Ur Amphetamines Screen NEGATIVE 05/12/19 15:50 U Benzodiazepines Scrn NEGATIVE 05/12/19 15:50 Urine Cocaine Screen NEGATIVE 05/12/19 15:50 U Marijuana (THC) Screen NEGATIVE 05/12/19 15:50 Impressions: Abdomen/Pelvis CT 05/12/19 18:25 IMPRESSION: Findings consistent with acute, uncomplicated pancreatitis. Hepatic steatosis. TECHNICAL DOCUMENTATION: Quality ID # [id number]: Final reports with documentation of one or more dose reduction techniques (e.g., Automated exposure control, adjustment of the mA and/or kV according to patient size, use of iterative reconstruction technique) copyright 2011 [employer]- All Rights Reserved Stroke Is this a Stroke Patient?: No Acute Heart Failure - Is this a Heart Failure Patient?: No
== END 2019-05-16 16:35 | disposition home or self-care (01) | DRG 440 ==
LOC: ER 15:17 → EH 05-13 → 5 05-13 03:30
PROVIDERS: ADMIT Internal Medicine; ATTEND Internal Medicine
DX: K85.20 Alcohol induced acute pancreatitis without necrosis or infection (principal); E66.9 Obesity, unspecified; Z68.28 Body mass index [BMI] 28.0-28.9, adult
CPT/HCPCS: 36415; 74177; 80053; 80061; 80307; 81001; 83690; 83735; 84132; 85025; 85027; 96361; 96372; 96374; 96375; 96376; 99285; J1170; J1644; J1885; J2270; J2550; J7030; S0119